=== PATIENT | female | born 1985 | race Caucasian/White ===

== ENCOUNTER → 2019-12-23 | Day surgery (SDC) | payer OTHER ==
[~2019-12-23] MED LIST: ZITHROMAX TRI-500 MG PO
== END | disposition home or self-care (01) ==
LOC: ADM 12-18 11:00 → CIR.AMB 11:00
PROVIDERS: ATTEND Obstetrics & Gynecology Obstetrics
DX: N72 Inflammatory disease of cervix uteri (principal); Z20.828 Contact with and (suspected) exposure to other viral communicable diseases